=== PATIENT | male | born 1945 | race Caucasian/White ===

== ENCOUNTER 2018-05-25 20:51 | Inpatient (IN) | payer MEDICARE, OTHER ==
[~2018-05-25] VITALS: Ht 177.8 cm; Wt 137.4 kg
[~2018-05-25 20:51] MED LIST: AMLO10TA PO; FOLI1TAB19 PO; GABA100C PO; GLIP5TAB4 PO; LEVO0.173 PO; LISI-420 PO; OMEP40EC1 PO; ORE25 PO; SIMV10TA1 PO
[2018-05-25 20:52] VITALS: BP 144/81
--- NOTE | 2018-05-25 20:58 | NUR ---
Patient ambulated to bed 8. RN evaluating patient at bedside.
--- NOTE | 2018-05-25 21:00 | NUR ---
72/M CAME IN ED, C/O 03/18 CONSTANT LLQ PAIN, RADIATING TO BACK, X2 DAYS. PT WITH SLIGHT SOB. HX HTN, DM, GERD, KIDNEY STONE. PT DENIES N/V/D, DYSURIA; SKIN IS INTACT, PINK/WARM/DRY; AAOX4, PERRL, WITH EVEN AND STEADY GAIT; LUNGS CLEAR BL; HR EVEN AND REGULAR, BL PERIPHERAL PULSES PRESENT; BS HYPOACTIVE X4, SLIGHT TENDERNESS TO PALPATION; PT DENIES ANY FEVER, CP OR COUGH AT THIS TIME;PATIENT POSITIONED FOR COMFORT; HOB ELEVATED; BEDRAILS UP X2; BED DOWN. ER MD MADE AWARE.
[2018-05-25] MEDS ORDERED: NACL 0.9% 1,000 ML IV ONE (21:15)
[2018-05-25 21:32] LABS: BASOPHILS # (AUTO) 0.1 K/uL (0.00-0.22); BASOPHILS % (AUTO) 0.6 % (0.0-2.0); EOSINOPHILS # (AUTO) 0.1 K/uL (0-0.4); EOSINOPHILS % (AUTO) 0.9 % (0.0-4.0); HEMATOCRIT 49.4 % (36-52); HEMOGLOBIN 16.1 g/dL (12.0-18.0); LYMPHOCYTES # (AUTO) 1.3 K/uL (2.0-11.5); LYMPHOCYTES % (AUTO) 9.7 % (20.5-51.1); MEAN CORPUSCULAR HEMOGLOBIN 29 pg (27-31); MEAN CORPUSCULAR HGB CONC 33 g/dL (33-37); MEAN CORPUSCULAR VOLUME 89.2 fL (80-94); MONOCYTES # (AUTO) 0.6 K/uL (0.8-1.0); MONOCYTES % (AUTO) 4.1 % (1.7-9.3); NEUTROPHILS # (AUTO) 11.4 K/uL (1.8-7.7); NEUTROPHILS % (AUTO) 84.7 % (42.2-75.2); PLATELET COUNT (AUTO) 236 K/uL (140-450); RED BLOOD CELL COUNT(AUTO) 5.54 MIL/uL (4.20-6.10); RED CELL DISTRIBUTION WIDTH 15.5 % (11.6-13.7); WHITE BLOOD COUNT (AUTO) 13.5 K/uL (4.8-10.8)
--- NOTE | 2018-05-25 21:39 | NUR ---
PATIENT TAKEN TO CT WITH TECH.
[2018-05-25 21:41] LABS: ANION GAP 16.5 (8-16); CARBON DIOXIDE 21.9 mmol/L (21-32); CHLORIDE 101 mmol/L (98-107); CREATININE 1.8 mg/dL (0.7-1.3); GLUCOSE 281 mg/dL (74-106); POTASSIUM 4.4 mmol/L (3.5-5.1); SODIUM SERUM 135 mmol/L (136-145); UREA NITROGEN, BLOOD 17 mg/dL (7-18)
[2018-05-25 21:45] LABS: ASPARTATE AMINOTRANSFERASE 9 U/L (15-37); TOTAL BILIRUBIN 0.6 mg/dL (0.0-1.0)
[2018-05-25] MEDS ORDERED: HYDROcodone/APAP 5/325 MG 1 TAB TAB PO ONE (23:15)
[2018-05-25 23:16] LABS: APPEARANCE,URINE CLEAR (CLEAR); BILIRUBIN,URINE NEGATIVE (NEGATIVE); BLOOD, URINE TRACE-L (NEGATIVE); COLOR,URINE YELLOW (YELLOW); LEUKOCYTE ESTERASE ,URINE NEGATIVE (NEGATIVE); NITRITE, URINE NEGATIVE (NEGATIVE); UGLUCOSE 3+ (NEGATIVE)
[2018-05-25 23:54] LABS: RBC,URINE 0-5 (RARE) /HPF (0-5); WBC,URINE 0-5 (RARE) /HPF (0-5)
--- NOTE | 2018-05-26 | NUR ---
PT RESTING COMFORTABLY IN BED, CONDITION STABLE, PT REPORTS RELIEF OF PAIN AT THIS TIME. ALL NEEDS MET.
[2018-05-26] MEDS ORDERED: NACL 0.9% 1,000 ML IV SCH (00:24)
[2018-05-26] MEDS ORDERED: ACETAMINOPHEN 325 MG TAB PO PRN (00:25)
[2018-05-26] MEDS ORDERED: ONDANSETRON 4 MG/2 ML VIAL IVP PRN (00:25)
[2018-05-26] MEDS ORDERED: LEVOFLOXACIN 750 MG/D5W PREMIX 150 ML IV SCH ×3 (00:55→09:00)
[2018-05-26] MEDS ORDERED: POTA10TE30 PO (01:15)
[2018-05-26] MEDS ORDERED: ASPI81CT89 PO (01:15)
[2018-05-26] MEDS ORDERED: METF500T PO (01:15)
[2018-05-26] MEDS ORDERED: LOSA25TA22 PO (01:15)
[2018-05-26 01:25] VITALS: BP 172/92
--- NOTE | 2018-05-26 01:25 | NUR ---
REPORT RECEIVED FROM ED NURSE. PT IN STABLE CONDITION. AAOX4. INTRODUCED SELF TO PT AND BOARD UPDATED. PT AMBULATORY WITH BATHROOM PRIVILEGES. IV SITE PATENT AND INTACT RUNNING D5 1/2 NS@100ML/HR. SKIN WARM, DRY, AND INTACT WITH NO OPEN WOUNDS. PT HOB ELEVATED TO 45 DEGREES. ORIENTED PT TO ROOM AND CALL ROONEY. BED LOCKED IN LOW POSITION. CALL ROONEY WITHIN REACH.
--- NOTE | 2018-05-26 01:29 | NUR ---
Patient will be admitted to care of DR. PHAM. Admited to TELE. Will go to room 106A. Belongings list completed. Report to IGNACIO SINGER.
--- NOTE | 2018-05-26 01:31 | NUR ---
LEVOQUIN GIVEN. PT TOLERATING WELL.
[2018-05-26] MEDS ORDERED: DEXTROSE 50% 50 ML SYR IVP PRN ×2 (02:00)
[2018-05-26] MEDS: DEXT 5% / NACL 0.45% 1,000 ML IV SCH ×3 (02:20→21:30)
[2018-05-26 02:32] LABS: PROTHROMBIN TIME 11.4 secs (10.8-13.4)
[2018-05-26 02:44] LABS: FREE T4 (FREE THYROXINE) 1.07 ng/dL (0.76-1.46); MAGNESIUM 1.5 mg/dL (1.8-2.4); PHOSPHORUS 2.4 mg/dL (2.5-4.9); THYROID STIMULATING HORMONE 2.63 uIU/mL (0.34-3.74)
--- NOTE | 2018-05-26 03:30 | NUR ---
PT SLEEPING COMFORTABLY. NO S/S OF DISTRESS. WILL CONTINUE TO MONITOR.
[2018-05-26 04:00] VITALS: BP 141/86
[2018-05-26] MEDS: BLOOD GLUCOSE MONITORING 1 DEV DEV FS SCH ×4 (06:02→20:46)
[2018-05-26] MEDS ORDERED: MAG SULF 2000 MG/WATER PREMIX 50 ML IV SCH (06:30)
[2018-05-26] MEDS ORDERED: LEVOTHYROXINE 0.1 MG TAB PO SCH (06:30)
[2018-05-26 07:14] LABS: BASOPHILS # (AUTO) 0.1 K/uL (0.00-0.22); BASOPHILS % (AUTO) 0.6 % (0.0-2.0); EOSINOPHILS # (AUTO) 0.2 K/uL (0-0.4); EOSINOPHILS % (AUTO) 1.3 % (0.0-4.0); HEMATOCRIT 46.1 % (36-52); LYMPHOCYTES # (AUTO) 1.9 K/uL (2.0-11.5); LYMPHOCYTES % (AUTO) 15.7 % (20.5-51.1); MEAN CORPUSCULAR HEMOGLOBIN 29 pg (27-31); MEAN CORPUSCULAR HGB CONC 33 g/dL (33-37); MONOCYTES # (AUTO) 0.6 K/uL (0.8-1.0); MONOCYTES % (AUTO) 5.3 % (1.7-9.3); NEUTROPHILS # (AUTO) 9.3 K/uL (1.8-7.7); NEUTROPHILS % (AUTO) 77.1 % (42.2-75.2); PLATELET COUNT (AUTO) 216 K/uL (140-450); RED BLOOD CELL COUNT(AUTO) 5.12 MIL/uL (4.20-6.10); WHITE BLOOD COUNT (AUTO) 12.1 K/uL (4.8-10.8)
--- NOTE | 2018-05-26 07:20 | NUR ---
REPORT GIVEN TO AM NURSE. PT IN STABLE CONDITION.
--- NOTE | 2018-05-26 07:21 | NUR ---
RECEIVED REPORT FROM THE MANAGER CORPORATE RESPONSIBILITY NURSE. PT IS AWAKE AND ORIENTED. INTRODUCED MYSELF AND UPDATED THE BOARD. PT IS ON ROOM AIR. SKIN INTACT. LBM ON 05/24. IV ON L HAND 20G D5 1/2 NS INFUSING AT 100ML/HR. PLAN OF DAY: DR. HENRIQUEZ AND DR. KOWALSKI TO CONSULT. WILL CONTINUE TO MONITOR PT.
[2018-05-26] MEDS ORDERED: CLINICAL MONITORING MC PRN (07:25)
[2018-05-26 07:33] LABS: ANION GAP 12.1 (8-16); CARBON DIOXIDE 26.3 mmol/L (21-32); CHLORIDE 103 mmol/L (98-107); CREATININE 1.9 mg/dL (0.7-1.3); GLUCOSE 160 mg/dL (74-106); POTASSIUM 4.4 mmol/L (3.5-5.1); SODIUM SERUM 137 mmol/L (136-145); UREA NITROGEN, BLOOD 15 mg/dL (7-18)
[2018-05-26 07:43] LABS: CHOL/HDL RATIO 4.4 (1-4.5)
[2018-05-26 08:00] VITALS: BP 139/84
--- NOTE | 2018-05-26 08:42 | NUR ---
PATIENT HAS BEEN SCREENED AND CATEGORIZED HIGH NUTRITION RISK. PATIENT WILL BE SEEN WITHIN 1-2 DAYS OF ADMISSION. 05/26/18 05/27/[address]
[2018-05-26] MEDS ORDERED: ASPIRIN 81 MG TAB.CHEW PO SCH (09:00)
[2018-05-26] MEDS: DOCUSATE SODIUM 100 MG GELCAP PO SCH ×2 (09:24→20:35)
[2018-05-26] MEDS: LISINOPRIL 20 MG TAB PO SCH (09:25)
[2018-05-26] MEDS: HYDROCHLOROTHIAZIDE 25 MG TAB PO SCH (09:25)
[2018-05-26] MEDS: amLODIPine 5 MG TAB PO SCH (09:25)
[2018-05-26] MEDS: SODIUM PHOS / POTASSIUM PHOS 1 PKT PDR PO SCH ×2 (09:26→17:51)
[2018-05-26] MEDS: glipiZIDE 5 MG TAB PO SCH (09:26)
[2018-05-26] MEDS: GABAPENTIN 100 MG CAP PO SCH (09:26)
[2018-05-26] MEDS: metFORMIN 500 MG TAB PO SCH ×2 (09:26→17:50)
[2018-05-26] MEDS: LOSARTAN 25 MG TAB PO SCH (09:27)
[2018-05-26] MEDS: PANTOPRAZOLE 40 MG INJ VIAL IVP SCH (09:27)
[2018-05-26] MEDS: TAMSULOSIN 0.4 MG CAP PO SCH (09:29)
[2018-05-26] MEDS: LEVOTHYROXINE 0.1 MG, LEVOTHYROXINE 0.075 MG PO SCH ×2 (09:32)
--- NOTE | 2018-05-26 09:35 | NUR ---
ADMINISTERED MORNING MEDS. PT TOLERATED WELL.
[2018-05-26] MEDS: MAGNESIUM SULFATE 1GM in DEXTROSE 5% 100 ML PREMIX IV SCH ×2 (11:12→12:33)
--- NOTE | 2018-05-26 11:18 | NUR ---
ADMINISTERED MAG ADRIANER 1 OF 2. PT TOLERATING WELL. WILL CONTINUE TO MONITOR PT. Addendum: 05/26/18 at 1120 by Mindi Madrid RN LATE ADMINISTRATION D/T PT HAVING LEVAQUIN IVPB THIS MORNING.
[2018-05-26 12:00] VITALS: BP 121/74
--- NOTE | 2018-05-26 12:40 | NUR ---
ADMINISTERED 2ND BAG OF MAG RIDER. PT TOLERATING WELL. WILL CONTINUE TO MONITOR PT.
--- NOTE | 2018-05-26 13:21 | NUR ---
Clinical review faxed to [facility] at [phone]
--- NOTE | 2018-05-26 13:43 | NUR ---
DR. DON CAME AND SAW PT. SMALL KIDNEY STONE. SHOULD PASS BY ITSELF PER MD. ANSWERED ALL QUESTIONS.
[2018-05-26 16:00] VITALS: BP 103/57
--- NOTE | 2018-05-26 16:26 | NUR ---
PT RESTING COMFORTABLY. NO SIGNS OF DISTRESS. NO COMPLAINTS AT THIS TIME. WILL CONTINUE TO MONITOR PT.
--- NOTE | 2018-05-26 16:35 | NUR ---
05/26/18 RD INITIAL ASSESSMENT COMPLETED PLEASE REFER TO NUTRITION ASSESSMENT UNDER CARE ACTIVITY FOR ESTIMATED NUTRITIONAL NEEDS. 1. WHEN/IF PT MEDICALLY STABLE TO BEGIN NUTRITION, CONSID[facility], CARDIAC 2. PROVIDED NUTRITION EDUCATION ON THE DASH DIET AND WEIGHT LOSS 3. FOLLOW-UP NUTRITION EDUCATION TO REINFORCE DASH DIET 4. RD TO FOLLOW-UP 3-5 DAYS, MODERATE RISK BLUE H[address] RD
--- NOTE | 2018-05-26 18:39 | NUR ---
PT RESTING COMFORTABLY. STILL WAITING ON THE CONSULTS TO COME SEE HIM. PT C/O BEING NPO FOR 2 DAYS NOW. PT THOUGHT HE COULD LEAVE TODAY. ADVISED PT TO WAIT FOR CONSULT TO SEE HIM. THEY WILL DECIDE ON IS D/C.
--- NOTE | 2018-05-26 19:12 | NUR ---
ENDORSED PT TO THE AIR HOSE COUPLER NURSE AT BEDSIDE FOR CONTINUITY OF CARE. PT IS IN STABLE CONDITION.
--- NOTE | 2018-05-26 19:15 | NUR ---
RECEIVED PT ON BED, AAOX4, VITAL SIGNS STABLE, COMPLAINING OF BACK PAIN, WILL MEDICATE PRN, IVF INFUSING WELL, MAINTAINED ON NPO EXCEPT MEDS, IVF INFUSING WELL, PLAN OF CARE DISCUSSED, SAFETY MEASURES IN PLACE, CALL LIGHT WITHIN REACH.
[2018-05-26] MEDS: HYDROcodone/APAP 7.5/325 MG 1 TAB PO PRN (19:29)
--- NOTE | 2018-05-26 19:50 | NUR ---
PT MEDICATED WITH NORCO FOR PAIN, DR HENRIQUEZ HERE FOR SURGICAL CONSULT, SEEN AND TALK TO THE PT, OK TO GIVE FOOD TONIGHT THEN NPO AFTER MIDNIGHT, ALL NEEDS ATTENDED.
[2018-05-26 20:00] VITALS: BP 116/65
[2018-05-26] MEDS: SIMVASTATIN 10 MG TAB PO SCH (20:35)
[2018-05-27] VITALS: BP 122/66
--- NOTE | 2018-05-27 | NUR ---
PT SLEEPING, EASILY AROUSABLE, VITAL SIGNS STABLE, DENIES ANY PAIN, INSTRUCTED NPO STATUS WITH SCHEDULE SX AT 1000, IVF INFUSING WELL, CONTINUE TO MONITOR CLOSELY.
[2018-05-27] MEDS: DEXT 5% / NACL 0.45% 1,000 ML IV SCH ×2 (02:04→06:45)
--- NOTE | 2018-05-27 03:40 | NUR ---
PT SLEEPING, EASILY AROUSABLE, VITAL SIGNS STABLE, DENIES PAIN, AMBULATED TO BR AND VOIDED FREELY, MAINTAINED ON NPO, MONITORED CLOSELY.
[2018-05-27 04:00] VITALS: BP 126/65
--- NOTE | 2018-05-27 04:08 | NUR ---
PT AWAKE, REQUESTING TO BE CHANGED, BM WITH SMALL LOOSE STOOL, BED BATH DONE, REPOSITIONED AND OFFLOAD PRESSURE AREAS, RT UA PICC LINE SINGLE LUMEN IN PLACE, ATTEMPT TO FLUSH BUT HAS RESISTANCE, IVF INFUSING WELL VIA PERIPHERAL IV LINE TO RT HAND, SITE REWRAPPED WITH KERLIX, VITAL SIGNS STABLE, NO SOB NOTED, DENIES PAIN, MONITORED CLOSELY. Addendum: 05/27/18 at 0414 by Marin Comer RN CHARTED ON WRONG PT
--- NOTE | 2018-05-27 06:00 | NUR ---
BLOOD SUGAR CHECKED WITH 150 RESULT, NO COVERAGE NEEDED, DENIES PAIN, MAINTAINED ON NPO, IVF INFUSING WELL, MONITORED CLOSELY.
--- NOTE | 2018-05-27 06:37 | NUR ---
PT PREFERS TO TAKE OFF HIS PANTS LATER, NO DENTURES NOTED, IVF INFUSING WELL, MONITORED CLOSELY.
[2018-05-27] MEDS: BLOOD GLUCOSE MONITORING 1 DEV DEV FS SCH ×4 (06:44→21:14)
[2018-05-27] MEDS ORDERED: LEVO750T2 PO (06:55)
[2018-05-27] MEDS ORDERED: ACET-9529 PO (06:55)
[2018-05-27] MEDS ORDERED: DOCU-299 PO (06:55)
[2018-05-27] MEDS ORDERED: TAMS0.4C96 PO (06:55)
[2018-05-27] MEDS: HYDROcodone/APAP 7.5/325 MG 1 TAB PO PRN (06:56)
--- NOTE | 2018-05-27 07:15 | NUR ---
PT AWAKE, NO SIGNS OF DISTRESS, REPORT GIVEN TO IGNACIO CAMACHO FOR CONTINUITY OF CARE.
--- NOTE | 2018-05-27 07:16 | NUR ---
RECEIVED REPORT FROM SIDE SHOW ENTERTAINER NURSE. PATIENT LYING IN BED COMFORTABLY, NO DISTRESS NOTED. PAIN WITHIN TOLERABLE AT THIS TIME. AAOX4, CALM, COOPERATIVE, SKIN COLOR APPROPRIATE TO ETHNICITY, WARM TO TOUCH. SKIN IS INTACT, HOWEVER, B/L LE SKIN COLOR BROWN NOTED. B/L LE +1 PITTING EDEMA NOTED. LUNGS CTA ON ALL LOBES. ABDOMEN HAS BULGING SEROMA NOTED, THAT IS HARD UPON TOUCH. IV SITE INTACT, PATENT, AND INFUSING IVF PER MD ORDERS. REVIEWED PLAN OF CARE WITH PATIENT. PATIENT TO GO TO SURGERY FOR ABD WALL SEROMA DRAINAGE TODAY AT 10 AM. PATIENT VERBALIZED UNDERSTANDING. SAFETY MEASURES IN PLACE, CALL LIGHT WITHIN REACH. WILL CONTINUE TO MONITOR.
[2018-05-27 08:00] VITALS: BP 117/77
[2018-05-27] MEDS: metFORMIN 500 MG TAB PO SCH ×2 (08:00→17:27)
[2018-05-27] MEDS: SODIUM PHOS / POTASSIUM PHOS 1 PKT PDR PO SCH ×2 (08:00→17:27)
[2018-05-27] MEDS: TAMSULOSIN 0.4 MG CAP PO SCH (08:30)
[2018-05-27] MEDS: HYDROCHLOROTHIAZIDE 25 MG TAB PO SCH (09:00)
[2018-05-27] MEDS: DOCUSATE SODIUM 100 MG GELCAP PO SCH ×2 (09:00→20:03)
[2018-05-27] MEDS: glipiZIDE 5 MG TAB PO SCH (09:00)
[2018-05-27] MEDS: LISINOPRIL 20 MG TAB PO SCH (09:00)
[2018-05-27] MEDS: GABAPENTIN 100 MG CAP PO SCH (09:00)
[2018-05-27] MEDS: amLODIPine 5 MG TAB PO SCH (09:00)
[2018-05-27] MEDS: LEVOTHYROXINE 0.1 MG, LEVOTHYROXINE 0.075 MG PO SCH ×2 (09:00)
[2018-05-27] MEDS: LOSARTAN 25 MG TAB PO SCH (09:00)
[2018-05-27] MEDS: PANTOPRAZOLE 40 MG INJ VIAL IVP SCH (09:00)
--- NOTE | 2018-05-27 09:10 | NUR ---
PATIENT LYING DOWN IN BED SLEEPING, AROUSABLE BY VOICE. NO DISTRESS NOTED. DENIES ANY PAIN. SCHEDULED MEDICATIONS NOT GIVEN DUE TO PATIENT BEING NPO. SCHEDULED FOR SURGERY AT 1000. SAFETY MEASURES IN PLACE, CALL LIGHT WITHIN REACH. WILL CONTINUE TO MONITOR.
--- NOTE | 2018-05-27 09:40 | NUR ---
OR NURSE ON UNIT READY TO TAKE PATIENT TO OR. WILL CONTINUE TO MONITOR.
[2018-05-27 10:32] LABS: BASOPHILS # (AUTO) 0.1 K/uL (0.00-0.22); BASOPHILS % (AUTO) 0.5 % (0.0-2.0); EOSINOPHILS # (AUTO) 0.1 K/uL (0-0.4); EOSINOPHILS % (AUTO) 0.9 % (0.0-4.0); HEMATOCRIT 44.1 % (36-52); HEMOGLOBIN 14.3 g/dL (12.0-18.0); LYMPHOCYTES # (AUTO) 1.5 K/uL (2.0-11.5); LYMPHOCYTES % (AUTO) 12.7 % (20.5-51.1); MEAN CORPUSCULAR HEMOGLOBIN 29 pg (27-31); MEAN CORPUSCULAR HGB CONC 33 g/dL (33-37); MEAN CORPUSCULAR VOLUME 89.1 fL (80-94); MONOCYTES # (AUTO) 0.7 K/uL (0.8-1.0); MONOCYTES % (AUTO) 5.5 % (1.7-9.3); NEUTROPHILS # (AUTO) 9.8 K/uL (1.8-7.7); NEUTROPHILS % (AUTO) 80.4 % (42.2-75.2); PLATELET COUNT (AUTO) 196 K/uL (140-450); RED BLOOD CELL COUNT(AUTO) 4.95 MIL/uL (4.20-6.10); RED CELL DISTRIBUTION WIDTH 16.3 % (11.6-13.7); WHITE BLOOD COUNT (AUTO) 12.2 K/uL (4.8-10.8)
[2018-05-27] MEDS ORDERED: BUPIVACAINE-MPF 0.25% 30 ML VIAL INJ ONE ×2 (10:40→11:22)
[2018-05-27] MEDS ORDERED: fentaNYL 0.05 MG/ML VIAL ONE (10:53)
[2018-05-27] MEDS ORDERED: MIDAZOLAM 2 MG/2 ML VIAL ONE (10:53)
[2018-05-27 10:54] LABS: MAGNESIUM 1.6 mg/dL (1.8-2.4); PHOSPHORUS 3.5 mg/dL (2.5-4.9)
[2018-05-27] MEDS ORDERED: ONDANSETRON 4 MG/2 ML VIAL IVP PRN (11:10)
[2018-05-27] MEDS ORDERED: BLOOD GLUCOSE MONITORING 1 DEV DEV FS ONE (11:10)
[2018-05-27] MEDS ORDERED: diphenhydrAMINE 50 MG/ML VIAL IVP PRN (11:10)
[2018-05-27 11:50] VITALS: BP 106/64
--- NOTE | 2018-05-27 11:50 | NUR ---
PATIENT BACK ON UNIT FROM PACU. PATIENT IN STABLE CONDITION. NO DISTRESS NOTED. DENIES ANY PAIN AT THIS TIME. HAS 1 ABDOMINAL NEEDLE INSERTION POINT DUE TO ASPIRATION OF ABD WALL SEROMA, BANDAID INTACT AND DRY. SAFETY MEASURES IN PLACE, CALL LIGHT WITHIN REACH. WILL CONTINUE TO MONITOR.
[2018-05-27] MEDS: NACL 0.9% 1,000 ML IV SCH ×3 (12:39→22:24)
--- NOTE | 2018-05-27 12:46 | NUR ---
PATIENT LYING IN BED GETTING ULTRASOUND OF B/L LE. NO DISTRESS NOTED. DENIES ANY PAIN. NEW IV FLUIDS STARTED PER MD ORDERS. SAFETY MEASURES IN PLACE, CALL LIGHT WITHIN REACH. WILL CONTINUE TO MONITOR.
--- NOTE | 2018-05-27 13:53 | NUR ---
LAND HAND IV SITE LEAKING, REMOVED WITH MINIMAL BLOOD AND LUMEN COMPLETELY INTACT. STARTED NEW IV LINE ON RIGHT HAND #22 GAUGE ON SECOND ATTEMPT. WILL CONTINUE TO MONITOR.
[2018-05-27 14:28] LABS: ANION GAP 18.2 (8-16); CHLORIDE 100 mmol/L (98-107); CREATININE 2.4 mg/dL (0.7-1.3); GLUCOSE 160 mg/dL (74-106); POTASSIUM 4.2 mmol/L (3.5-5.1); SODIUM SERUM 134 mmol/L (136-145); UREA NITROGEN, BLOOD 17 mg/dL (7-18)
--- NOTE | 2018-05-27 15:18 | NUR ---
LOVELY NOTE CONCURRENT REVIEW FAXED TO [facility] [phone] PH# [phone] AND TO [facility] [phone] LOVELY [facility] PH# [phone]
[2018-05-27 15:26] LABS: GLUCOSE,BODY FLUID 136 mg/dL
--- NOTE | 2018-05-27 15:30 | NUR ---
PATIENT LYING DOWN IN BED SLEEPING, AROUSABLE BY VOICE. NO DISTRESS NOTED. DENIES ANY PAIN. CONDITION UNCHANGED. SAFETY MEASURES IN PLACE, CALL LIGHT WITHIN REACH. WILL CONTINUE TO MONITOR.
[2018-05-27 15:46] LABS: APPEARANCE,UNSPUN,BODY FLUID CLOUDY (CLEAR); SPECIMENTYPE,BODY FLUID ABDOMINAL WALL FLUID
[2018-05-27 15:47] LABS: APPEARANCE,SPUN,BODY FLUID TURBID (CLEAR); COLOR,BODY FLUID GREEN (LT YELLOW)
[2018-05-27 15:48] LABS: ALBUMIN,BODY FLUID 2.7 g/dL; LDH,BODY FLUID 1695 U/L; LIPASE,BODY FLUID 39 U/L; TOTAL VOLUME,BODY FLUID 100 mL
[2018-05-27 16:00] VITALS: BP 124/69
--- NOTE | 2018-05-27 17:29 | NUR ---
PATIENT LYING IN BED SLEEPING, AROUSABLE BY VOICE. NO DISTRESS NOTED. DENIES ANY PAIN. SCHEDULED MEDICATIONS DUE GIVEN. SAFETY MEASURES IN PLACE, CALL LIGHT WITHIN REACH. WILL CONTINUE TO MONITOR.
[2018-05-27 19:00] LABS: WBC, BODY FLUID 0 /cu. mm.
[2018-05-27 19:01] LABS: RBC, BODY FLUID 4 /cu. mm.
--- NOTE | 2018-05-27 19:30 | NUR ---
GAVE REPORT TO MANAGER CONTENT NURSE FOR CONTINUITY OF CARE. PATIENT IN STABLE CONDITION.
--- NOTE | 2018-05-27 19:30 | NUR ---
RECEIVED PT SLEEPING, EASILY AROUSABLE, VITAL SIGNS STABLE, DENIES ANY PAIN, ABDOMINAL ASPIRATION SITE COVERED WITH BAND-AID, NO DRAINAGE OR BLEEDING NOTED, IVF INFUSING WELL, AMBERLY LOWER EXTREMITIES WITH UNNA BOOT COVERED WITH NICOLE WRAPPED, GOOD CAP REFILL NOTED, PLAN OF CARE DISCUSS, SAFETY MEASURES IN PLACE, CALL LIGHT WITHIN REACH.
[2018-05-27] MEDS: SIMVASTATIN 10 MG TAB PO SCH (20:03)
--- NOTE | 2018-05-27 20:30 | NUR ---
BLOOD SUGAR CHECKED WITH 135 RESULT, SNACK PROVIDED, TOLERATED WELL, ALL NEEDS ATTENDED.
[2018-05-27] MEDS: HYDROcodone/APAP 10/325 MG 1 TAB TAB PO PRN (21:23)
[2018-05-28] VITALS: BP 127/76
--- NOTE | 2018-05-28 | NUR ---
PT SLEEPING, EASILY AROUSABLE, VITAL SIGNS STABLE, TOLERABLE 2/10 PAIN AT THIS TIME, VOIDING FREELY WITH CLEAR YELLOW URINE PER URINAL, IVF INFUSING WELL, CONTINUE TO MONITOR CLOSELY.
[2018-05-28] MEDS: NACL 0.9% 1,000 ML IV SCH ×4 (01:30→17:01)
[2018-05-28] MEDS: HYDROcodone/APAP 10/325 MG 1 TAB TAB PO PRN ×3 (04:18→17:39)
--- NOTE | 2018-05-28 04:20 | NUR ---
ROUNDS MADE, SEEN PT GRIMACING, PATIENT IN PAIN, MEDICATED WITH NORCO PO, MONITORED CLOSELY.
[2018-05-28] MEDS: BLOOD GLUCOSE MONITORING 1 DEV DEV FS SCH ×4 (06:30→21:28)
[2018-05-28 06:40] LABS: BASOPHILS # (AUTO) 0.1 K/uL (0.00-0.22); BASOPHILS % (AUTO) 0.6 % (0.0-2.0); EOSINOPHILS # (AUTO) 0.2 K/uL (0-0.4); EOSINOPHILS % (AUTO) 1.6 % (0.0-4.0); HEMATOCRIT 42.9 % (36-52); LYMPHOCYTES # (AUTO) 2.1 K/uL (2.0-11.5); LYMPHOCYTES % (AUTO) 20.7 % (20.5-51.1); MEAN CORPUSCULAR HEMOGLOBIN 30 pg (27-31); MEAN CORPUSCULAR HGB CONC 33 g/dL (33-37); MEAN CORPUSCULAR VOLUME 90.4 fL (80-94); MONOCYTES # (AUTO) 0.5 K/uL (0.8-1.0); MONOCYTES % (AUTO) 5.2 % (1.7-9.3); NEUTROPHILS # (AUTO) 7.2 K/uL (1.8-7.7); NEUTROPHILS % (AUTO) 71.9 % (42.2-75.2); PLATELET COUNT (AUTO) 195 K/uL (140-450); RED BLOOD CELL COUNT(AUTO) 4.75 MIL/uL (4.20-6.10)
[2018-05-28 07:03] LABS: MAGNESIUM 1.6 mg/dL (1.8-2.4); PHOSPHORUS 3.5 mg/dL (2.5-4.9)
--- NOTE | 2018-05-28 07:05 | NUR ---
PT SLEEPING, NO SIGNS OF DISTRESS, REPORT GIVEN TO IGNACIO BEE FOR CONTINUITY OF CARE. Addendum: 05/28/18 at 0726 by Marin Comer RN CHARTED ON WRONG PT
[2018-05-28 07:06] LABS: ANION GAP 11.3 (8-16); CARBON DIOXIDE 24.6 mmol/L (21-32); CHLORIDE 104 mmol/L (98-107); CREATININE 2.4 mg/dL (0.7-1.3); GLUCOSE 111 mg/dL (74-106); POTASSIUM 4.9 mmol/L (3.5-5.1); SODIUM SERUM 135 mmol/L (136-145); UREA NITROGEN, BLOOD 17 mg/dL (7-18)
--- NOTE | 2018-05-28 07:25 | NUR ---
PT SLEEPING, NO SIGNS OF DISTRESS, REPORT GIVEN TO RN DLAL FOR CONTINUITY OF CARE.
--- NOTE | 2018-05-28 07:26 | NUR ---
RECEIVED REPORT FROM PM NURSE AT BEDSIDE. NO SIGN OF DISTRESS. PT LYING ON HIS BACK. DENIES ANY PAIN AT THIS TIME. PT HAS THE IV SITE ON RT HAND 22 G, INFUSING 5% DEXTROSE 0.45 NS @ 120 ML/HR. PT HAS THE ABDOMINAL SEROMA , BL LE LYMPHEDEMA. PT HAS THE STOCKING ON BOTH LEG. INTRODUCED SELF AND UPDATED BOARD. WILL CONTINUE TO MONITOR THE PT.
[2018-05-28 08:00] VITALS: BP 121/83
[2018-05-28] MEDS ORDERED: MAGNESIUM OXIDE 400 MG TAB PO SCH (08:00)
[2018-05-28] MEDS ORDERED: LEVOFLOXACIN 750 MG/D5W PREMIX 150 ML IV SCH (09:00)
[2018-05-28] MEDS: DOCUSATE SODIUM 100 MG GELCAP PO SCH ×2 (09:21→20:47)
[2018-05-28] MEDS: GABAPENTIN 100 MG CAP PO SCH (09:22)
[2018-05-28] MEDS: HYDROCHLOROTHIAZIDE 25 MG TAB PO SCH (09:22)
[2018-05-28] MEDS: glipiZIDE 5 MG TAB PO SCH (09:22)
[2018-05-28] MEDS: LOSARTAN 25 MG TAB PO SCH (09:24)
[2018-05-28] MEDS: amLODIPine 5 MG TAB PO SCH (09:24)
[2018-05-28] MEDS: LISINOPRIL 20 MG TAB PO SCH (09:24)
[2018-05-28] MEDS: PANTOPRAZOLE 40 MG INJ VIAL IVP SCH (09:25)
[2018-05-28] MEDS: metFORMIN 500 MG TAB PO SCH ×2 (09:25→17:01)
[2018-05-28] MEDS: TAMSULOSIN 0.4 MG CAP PO SCH (09:29)
--- NOTE | 2018-05-28 09:30 | NUR ---
ADMINISTER MEDS ORDERED. TOLERATED WELL. NO SIGN OF DISTRESS. DENIES ANY PAIN AT THIS TIME. WILL CONTINUE TO MONITOR PT.
[2018-05-28] MEDS: LEVOTHYROXINE 0.1 MG, LEVOTHYROXINE 0.075 MG PO SCH ×2 (09:31)
[2018-05-28] MEDS: SODIUM PHOS / POTASSIUM PHOS 1 PKT PDR PO SCH ×2 (09:35→17:02)
--- NOTE | 2018-05-28 11:47 | NUR ---
SPOKE TO TIFFANIE AND [facility] GAVE VERBAL REPORT. FAXED OPERATIVE REPORT, PODIATRY CONSULT, PROGRESS NOTES TO [facility] [phone] PHONE TIFFANIE [phone].
--- NOTE | 2018-05-28 11:50 | NUR ---
[id number] ON PT. BS 143, NO [id number] COVERAGE NEEDED AT THIS TIME. NO SIGN OF DISTRESS. DENIES ANY PAIN. WILL CONTINUE TO MONITOR PT.
[2018-05-28] MEDS: metroNIDAZOLE 500 MG/NS PREMIX 100 ML IV SCH ×2 (12:28→20:47)
--- NOTE | 2018-05-28 13:27 | NUR ---
PT SLEEPING AT THIS TIME. NO SIGN OF DISTRESS NOTED. PT HAS NOT EATEN FOOD THIS TIME. WILL CONTINUE TO MONITOR THE PT.
[2018-05-28 16:30] VITALS: BP 111/68
--- NOTE | 2018-05-28 17:00 | NUR ---
CHECKED ON PT. LYING ON BED. NO SIGN OF DISTRESS. PT TOLERATED WELL. BS 105 . NO SIGN OF DISTRESS. WILL CONTINUE TO MONITOR PT.
--- NOTE | 2018-05-28 18:39 | NUR ---
CHECKED ON PT TO REASSESS PAIN. PT SLEEPING AT THIS TIME. NO SIGN OF DISTRESS. WILL CONTINUE TO MONITOR PT.
--- NOTE | 2018-05-28 19:19 | NUR ---
ENDORSED PT TO PM NURSE. PT IN STABLE CONDITION.
--- NOTE | 2018-05-28 19:20 | NUR ---
RECEIVED REPORT FROM DAY SHIFT NURSE. PT RESTING IN BED. AAOX4. NO DISTRESS NOTED. IV TO RIGHT HAND #22G, NS AT 120 ML/HR INFUSING WELL. PT HAS BANDAGE TO ABDOMEN, CLEAN, DRY AND INTACT. NO C/O PAIN. BILATERAL LOWER EXTREMITIES WRAPPED WITH NICOLE BANDAGES. DISCUSSED PLAN OF CARE, PT VERBALIZED UNDERSTANDING. SAFETY PRECAUTION IN PLACE. CALL LIGHT WITHIN REACH.
[2018-05-28] MEDS: SIMVASTATIN 10 MG TAB PO SCH (20:47)
--- NOTE | 2018-05-28 21:00 | NUR ---
BLOOD SUGAR CHECKED 92. DUE MEDS GIVEN. PT TOLERATED WELL.
--- NOTE | 2018-05-28 23:25 | NUR ---
PT LYING COMFORTABLY IN BED. NO C/O PAIN. NO RESP DISTRESS NOTED. ALL NEEDS MET AT THIS TIME. CALL LIGHT WITHIN REACH.
[2018-05-29] VITALS: BP 109/64
--- NOTE | 2018-05-29 02:05 | NUR ---
PT SLEEPING BUT EASILY AROUSABLE. NO S/S OF PAIN OR DISCOMFORT. NO RESP DISTRESS NOTED.
[2018-05-29] MEDS: metroNIDAZOLE 500 MG/NS PREMIX 100 ML IV SCH ×2 (04:12→13:49)
[2018-05-29] MEDS: NACL 0.9% 1,000 ML IV SCH ×3 (04:49→13:09)
--- NOTE | 2018-05-29 05:18 | NUR ---
PT RESTING IN BED WITH EYES CLOSED. RESP EVEN AND UNLABORED. NO S/S OF PAIN OR DISCOMFORT.
--- NOTE | 2018-05-29 06:28 | NUR ---
BLOOD SUGAR CHECKED 78. PT ASKED FOR JUICE. JUICE PROVIDED. NO C/O PAIN OR SOB NOTED.
[2018-05-29] MEDS: BLOOD GLUCOSE MONITORING 1 DEV DEV FS SCH ×2 (06:42→11:35)
--- NOTE | 2018-05-29 07:03 | NUR ---
ENDORSED PT TO DAY SHIFT NURSE. PT IN STABLE CONDITION.
--- NOTE | 2018-05-29 07:04 | NUR ---
RECEIVED REPORT FROM [facility] NURSE. PATIENT LYING DOWN IN BED SLEEPING, AROUSABLE BY VOICE. NO DISTRESS NOTED. DENIES ANY PAIN. RESPIRATIONS EVEN, UNLABORED, ON ROOM AIR. AAOX4, CALM, COOPERATIVE, SKIN COLOR APPROPRIATE TO ETHNICITY, WARM TO TOUCH. SKIN IS INTACT, HAS ABDOMINAL NEEDLE POKE ASPIRATION OF SEROMA, BANDAGE IS DRY AND INTACT. B/L LE IS WRAPPED WITH UNNA BOOTS AND NICOLE BANDAGE DUE TO LYMPHEDEMA. ABLE TO AMBULATE TO BATHROOM AND BACK TO BED WITH STEADY GAIT. LUNGS CTA ON ALL LOBES. ABDOMEN SITE INTACT, PATENT, AND INFUSING IVF PER MD ORDERS. SAFETY MEASURES IN PLACE, CALL LIGHT WITHIN REACH. WILL CONTINUE TO MONITOR.
[2018-05-29 07:33] LABS: BASOPHILS % (AUTO) 0.6 % (0.0-2.0); EOSINOPHILS # (AUTO) 0.2 K/uL (0-0.4); EOSINOPHILS % (AUTO) 2.3 % (0.0-4.0); HEMATOCRIT 40.6 % (36-52); HEMOGLOBIN 13.4 g/dL (12.0-18.0); LYMPHOCYTES % (AUTO) 24.3 % (20.5-51.1); MEAN CORPUSCULAR HEMOGLOBIN 30 pg (27-31); MEAN CORPUSCULAR HGB CONC 33 g/dL (33-37); MEAN CORPUSCULAR VOLUME 90.3 fL (80-94); MONOCYTES # (AUTO) 0.4 K/uL (0.8-1.0); MONOCYTES % (AUTO) 4.4 % (1.7-9.3); NEUTROPHILS # (AUTO) 5.7 K/uL (1.8-7.7); NEUTROPHILS % (AUTO) 68.4 % (42.2-75.2); PLATELET COUNT (AUTO) 193 K/uL (140-450); RED CELL DISTRIBUTION WIDTH 15.9 % (11.6-13.7); WHITE BLOOD COUNT (AUTO) 8.3 K/uL (4.8-10.8)
[2018-05-29 08:00] VITALS: BP 141/69
[2018-05-29] MEDS: metFORMIN 500 MG TAB PO SCH (08:00)
[2018-05-29 08:06] LABS: CARBON DIOXIDE 24.5 mmol/L (21-32); CHLORIDE 105 mmol/L (98-107); CREATININE 2.2 mg/dL (0.7-1.3); GLUCOSE 76 mg/dL (74-106); POTASSIUM 4.5 mmol/L (3.5-5.1); SODIUM SERUM 136 mmol/L (136-145); UREA NITROGEN, BLOOD 11 mg/dL (7-18)
[2018-05-29 08:14] LABS: MAGNESIUM 1.4 mg/dL (1.8-2.4); PHOSPHORUS 3.7 mg/dL (2.5-4.9)
[2018-05-29] MEDS: glipiZIDE 5 MG TAB PO SCH (09:13)
[2018-05-29] MEDS: GABAPENTIN 100 MG CAP PO SCH (09:13)
[2018-05-29] MEDS: LOSARTAN 25 MG TAB PO SCH (09:14)
[2018-05-29] MEDS: DOCUSATE SODIUM 100 MG GELCAP PO SCH (09:14)
[2018-05-29] MEDS: amLODIPine 5 MG TAB PO SCH (09:14)
[2018-05-29] MEDS: LEVOTHYROXINE 0.1 MG, LEVOTHYROXINE 0.075 MG PO SCH ×2 (09:15)
[2018-05-29] MEDS: SODIUM PHOS / POTASSIUM PHOS 1 PKT PDR PO SCH (09:16)
[2018-05-29] MEDS: LISINOPRIL 20 MG TAB PO SCH (09:16)
[2018-05-29] MEDS: HYDROCHLOROTHIAZIDE 25 MG TAB PO SCH (09:17)
[2018-05-29] MEDS: TAMSULOSIN 0.4 MG CAP PO SCH (09:17)
[2018-05-29] MEDS: PANTOPRAZOLE 40 MG INJ VIAL IVP SCH (09:18)
--- NOTE | 2018-05-29 09:28 | NUR ---
PATIENT SITTING IN BED COMFORTABLY, NO DISTRESS NOTED. DENIES ANY PAIN. SCHEDULED MEDICATIONS DUE GIVEN. METFORMIN NOT GIVEN DUE TO DECREASED GLUCOSE. SAFETY MEASURES IN PLACE, CALL LIGHT WITHIN REACH. WILL CONTINUE TO MONITOR.
[2018-05-29] MEDS ORDERED: MAGNESIUM OXIDE 400 MG TAB PO SCH (10:20)
--- NOTE | 2018-05-29 11:03 | NUR ---
PATIENT LYING IN BED SLEEPING, AROUSABLE BY VOICE. NO DISTRESS NOTED. DENIES ANY PAIN. SCHEDULED MEDICATION DUE GIVEN. SAFETY MEASURES IN PLACE, CALL LIGHT WITHIN REACH. WILL CONTINUE TO MONITOR.
--- NOTE | 2018-05-29 13:53 | NUR ---
PATIENT LYING IN BED. NO DISTRESS NOTED. DENIES ANY PAIN. SCHEDULED ANTIBIOTIC MEDICATION DUE GIVEN. SAFETY MEASURES IN PLACE, CALL LIGHT WITHIN REACH. WILL CONTINUE TO MONITOR.
--- NOTE | 2018-05-29 16:30 | NUR ---
DISCHARGE INSTRUCTIONS PROVIDED TO PATIENT/DAUGHTER AT BEDSIDE IN PREFERRED LANGUAGE OF CUBAN. FOLLOW UP VISIT WITH PCP AND [employer] EDUCATION GIVEN, PRESCRIPTIONS GIVEN, DIET REGIMEN, AND DISEASE PROCESS OF DM PROVIDED. ANSWERED ALL OF PATIENT/DAUGHTER'S QUESTION REGARDING DISCHARGE. PATIENT/DAUGHTER VERBALIZED COMPLETE UNDERSTANDING. IV SITE REMOVED WITH MINIMAL BLOOD AND LUMEN COMPLETELY INTACT. ID BANDS REMOVED. ALL BELONGINGS WITH PATIENT. ESCORTED PATIENT DOWN TO LOBBY VIA WHEELCHAIR. PATIENT DISCHARGED TO HOME IN PRIVATE VEHICLE IN STABLE CONDITION AT THIS TIME.
== END 2018-05-29 16:30 | disposition home or self-care (01) | DRG 871 ==
LOC: MED 20:51 → MTU 05-26 00:24
PROVIDERS: ADMIT Hospitalist; ATTEND Hospitalist
PROC: 0W9F3ZZ Drainage of Abdominal Wall, Percutaneous Approach (ICD-10-PCS; principal; 2018-05-27 10:00)
DX: A41.9 Sepsis, unspecified organism (principal); N17.0 Acute kidney failure with tubular necrosis; Z68.41 Body mass index [BMI] 40.0-44.9, adult; E87.1 Hypo-osmolality and hyponatremia; E44.0 Moderate protein-calorie malnutrition; N13.6 Pyonephrosis; S30.1XXA Contusion of abdominal wall, initial encounter; E11.65 Type 2 diabetes mellitus with hyperglycemia; K21.9 Gastro-esophageal reflux disease without esophagitis; E03.9 Hypothyroidism, unspecified; E78.5 Hyperlipidemia, unspecified; E66.01 Morbid (severe) obesity due to excess calories; I87.2 Venous insufficiency (chronic) (peripheral); E83.39 Other disorders of phosphorus metabolism; E11.51 Type 2 diabetes mellitus with diabetic peripheral angiopathy without gangrene; B35.1 Tinea unguium; E11.22 Type 2 diabetes mellitus with diabetic chronic kidney disease; E11.42 Type 2 diabetes mellitus with diabetic polyneuropathy; E83.42 Hypomagnesemia; I12.9 Hypertensive chronic kidney disease with stage 1 through stage 4 chronic kidney disease, or unspecified chronic kidney disease; I89.0 Lymphedema, not elsewhere classified; X58.XXXA Exposure to other specified factors, initial encounter; N18.9 Chronic kidney disease, unspecified; D72.829 Elevated white blood cell count, unspecified; Z79.84 Long term (current) use of oral hypoglycemic drugs; Z88.0 Allergy status to penicillin; Z79.82 Long term (current) use of aspirin; Z79.899 Other long term (current) drug therapy; Y93.89 Activity, other specified; Y92.89 Other specified places as the place of occurrence of the external cause; Y99.8 Other external cause status
CPT/HCPCS: 36415; 71045; 75989; 80048; 80053; 81001; 82150; 82945; 82948; 83036; 83605; 83615; 83690; 83735; 83880; 84100; 84157; 84439; 84443; 84484; 85025; 85610; 85730; 87040; 87070; 87075; 87081; 87205; 88305; 89051; 93005; 93925; 93970; 96360; 99285; C9113; J1644; J1956; J2250; J3010; J3490; J7030; Q0092